=== PATIENT | male | born 1990 | race Hispanic/Latino ===

== ENCOUNTER 2017-09-01 20:44 | Emergency (ER) | payer OTHER ==
[~2017-09-01] VITALS: Ht 165.1 cm; Wt 93.0 kg
[2017-09-01] MEDS ORDERED: SODIUM CHLORIDE 0.9% 1000ML 1,000 ML IV ONE (21:15)
[2017-09-01] MEDS ORDERED: ONDANSETRON HCL INJ 2 MG/ML VIAL IV ONE (21:15)
[2017-09-01] MEDS ORDERED: CIPROFLOXACIN 500 MG TAB PO SCH (22:15)
[2017-09-01] MEDS ORDERED: METRONIDAZOLE 500MG/NS 100ML 100 ML IV ONE (22:15)
[2017-09-01] MEDS ORDERED: SODIUM CHLORIDE 0.9% 1000ML 1,000 ML IV STA ×2 (22:36→23:33)
[2017-09-01] MEDS ORDERED: PROMETHAZINE HCL (IM) 25 MG/ML VIAL IV STA (22:36)
[2017-09-02 01:10] VITALS: BP 129/75
== END 2017-09-02 00:26 | disposition home or self-care (01) ==
LOC: FSED 20:44
DX: R11.2 Nausea with vomiting, unspecified (principal); R19.7 Diarrhea, unspecified; E86.9 Volume depletion, unspecified; A04.9 Bacterial intestinal infection, unspecified
CPT/HCPCS: 80053; 81003; 85025; 96360; 96365; 96374; 99284; J2405; J7030

== ENCOUNTER 2025-02-23 18:51 | Emergency (ER) | payer OTHER ==
[~2025-02-23] VITALS: Ht 167.6 cm; Wt 105.2 kg
[2025-02-23] MEDS ORDERED: IOPAMIDOL 370 MG/ML 100 ML INFUS..BTL INJ ONE (20:22)
[2025-02-23] MEDS: SODIUM CHLORIDE 0.9% 1000ML 1,000 ML IV ONE (20:47)
[2025-02-23] MEDS: KETOROLAC TROMETHAMINE 30 MG/ML VIAL IV STA (20:47)
[2025-02-23] MEDS ORDERED: ONDANSETRON ODT4 MG PO (23:37)
[2025-02-23 23:41] VITALS: PULSE 79; RESP 16; TEMP 97.9
[2025-02-23 23:50] VITALS: BP 122/80; PULSE 79; RESP 16; TEMP 97.9; O2SAT 98
== END 2025-02-23 23:46 | disposition home or self-care (01) ==
LOC: FSED 19:12
DX: R10.31 Right lower quadrant pain (principal); K52.9 Noninfective gastroenteritis and colitis, unspecified; N50.811 Right testicular pain; N50.3 Cyst of epididymis; K40.90 Unilateral inguinal hernia, without obstruction or gangrene, not specified as recurrent
CPT/HCPCS: 74177; 76870; 80053; 81003; 85025; 99284; J1885; J7030; Q9967

== ENCOUNTER 2025-02-24 23:39 | Emergency (ER) | payer OTHER ==
[~2025-02-24 23:39] MED LIST: ONDANSETRON ODT4 MG PO
== END 2025-02-25 01:46 | disposition short-term general hospital (02) ==
LOC: FSED 02-25 01:46
DX: R50.9 Fever, unspecified (principal)